=== PATIENT | male | born 1985 | race Caucasian/White ===

== ENCOUNTER 2019-12-05 23:53 | Observation (INO) ==
[2019-12-06] MEDS ORDERED: ONDANSETRON INJ 2 MG/ML 2 ML VIAL ONE (00:07)
[2019-12-06] MEDS ORDERED: LORazepam 2 MG/ML VIAL IV ONE (00:09)
[2019-12-06] MEDS ORDERED: SODIUM CHLORIDE 0.9% 1000ML 1,000 ML IV SCH ×2 (00:15→05:15)
[2019-12-06 00:25] LABS: Basophils # (auto) 0.01 K/uL (0-0.2); Basophils % (auto) 0.2 %; Eosinophils # (auto) 0.04 K/uL (0-0.5); Eosinophils % (auto) 0.8 %; Hematocrit (blood only) 42.6 % (42-52); Hemoglobin 14.5 g/dL (14.0-18.0); Immature Granulocytes # (auto) 0.01 K/uL (0.00-0.02); Immature Granulocytes % (auto) 0.2 %; Lymphocytes # (auto) 1.32 K/uL (1.2-3.4); Lymphocytes % (auto) 27.6 %; Mean Corpuscular Hemoglobin 30.3 pg (25-34); Mean Corpuscular Volume 88.9 fL (80-100); Mean Platelet Volume 9.9 fL (7.4-10.4); Monocytes # (auto) 0.33 K/uL (0.11-0.59); Monocytes % (auto) 6.9 %; Neutrophils # (auto) 3.07 K/uL (1.4-6.5); Neutrophils % (auto) 64.3 %; Platelet Count 188 K/uL (130-400); RDW Coefficient of Variation 13.3 % (11.5-14.5); RDW Standard Deviation 43.4 fL (36.4-46.3); Red Blood Count 4.79 M/uL (4.7-6.1); White Blood Count 4.78 K/uL (4.8-10.8)
[2019-12-06 00:42] LABS: Acetaminophen < 2 ug/ml (10-30); Salicylate < 1.7 mg/dl (2.8-20)
[2019-12-06 00:50] LABS: Alanine Aminotransferase 78 U/L (12-78); Albumin Globulin Ratio 1.1 (0.9-2); Albumin Level 3.8 gm/dl (3.4-5.0); Alkaline Phosphatase 52 U/L (45-117); Aspartate Aminotransferase 62 U/L (15-37); BUN Creatinine Ratio 7.1 (10-20); Bilirubin,Total 0.5 mg/dl (0.2-1); Blood Urea Nitrogen 9 mg/dl (7-18); Calcium 8.1 mg/dl (8.5-10.1); Carbon Dioxide 27 mmol/L (21-32); Chloride 107 mmol/L (98-107); Creatine Kinase 226 U/L (39-308); Creatinine Clr Calc Pharmacy 79.5 ml/min; Est GFR (African American) 84.5; Est GFR (Non-African American) 72.9; Globulin 3.4 gm/dl (2.5-4.0); Glucose 328 mg/dl (70-99); Magnesium 2.3 mg/dl (1.8-2.4); Potassium 3.9 mmol/L (3.5-5.1); Sodium 139 mmol/L (136-145); Total Protein 7.2 gm/dl (6.4-8.2); Troponin I < 0.015 ng/ml (0-0.045)
--- NOTE | 2019-12-06 01:01 | Emergency Department Note ---
Impression & Plan Cardiac arrest, Acute drug overdose, Acute hyperglycemia ED Provider Note NAME: CAITY ENRIQUE AGE: 34 SEX: M ARRIVES VIA: Ambulance INFORMANT: Patient, EMS ED PROVIDER(S): Isatu Velasquez DO CHIEF COMPLAINT: Cardiac arrest PLAN: Disposition: Admission to ICU by the [facility]ist MEDICAL DECISION MAKING: This is a 34-year-old male patient who presents to the emergency department after being found in cardiac arrest at home from a drug overdose. EMS and police found the patient at his apartment in asystole from a presumed drug overdose. After some basic life support resuscitation, the patient regained a pulse and began breathing again on his own. He was given a dose of Narcan which seemed to improve his situation. In route to the hospital, the patient had another episode of asystole and was again resuscitated. Once here at the hospital, the patient does admit to snorting an unknown drug which may have led to his situation. The patient required no further resuscitation here in the emergency department. He was found to be significantly hyperglycemic and was treated with IV fluids. He was somewhat hypothermic and was warmed with blankets. He was observed on the manager cardiac cath and pulse oximeter. The patient encouraged us to contact his mother who came to the bedside. The patient was noted to be hyperglycemic on laboratory testing. This is most likely a stress response. This will be followed closely as an inpatient. He has no history of previous episodes of hypoglycemia according to the mother. The case was discussed with the [facility] Hospitalist and they will evaluate the patient for further management. Triage Nursing notes reviewed and agree them. Additional history obtained from police, EMS and the patient's mother Vital Signs: reviewed and remarkable for hypothermia Differential diagnosis: Drug overdose, cardiac arrest, alcohol intoxication, trauma, ER treatment provided: IV normal saline hydration, IV Zofran, IV Ativan Diagnostics interpreted by me: ECG: Normal sinus rhythm at 91. There was no ST segment elevation or signs of ischemia. There was no ectopy Cardiac Monitoring: None Laboratory studies: See below Imaging studies: as per stat rad CT head : No acute intracranial process Chest x-ray: As per my interpretation-there is no evidence of pulmonary infiltrate or aspiration HPI: 34/M arrives for evaluation of cardiac arrest secondary to drug overdose. This is a 34-year-old male patient with a history of drug abuse who suffered a cardiac arrest tonight in his apartment. Most of the history was obtained from EMS and police initially. The patient was found by police and EMS in an unresponsive status with no pulse and not breathing. Someone called 911 from the apartment but he was found on the ground by himself when they arrived. They performed CPR with both compressions and ventilations for a period of time as the patient was noted to be asystolic on the manager cardiac cath. The patient slowly regained a pulse and began to breathe. They did administer 0.4mg IV Narcan which did seem to improve his level of consciousness for a short period of time. In route to the hospital, according to EMS, the patient became asystolic again and both chest compressions and ventilations were performed again for a period of time. The patient then slowly regained a pulse and began to breathe again. ROS: Unobtainable from patient as he is not fully awake and alert PAST MEDICAL HISTORY:Hearing loss secondary to trauma during service PAST SURGICAL HISTORY:See Below FAMILY HISTORY:See Below SOCIAL HISTORY:Recently deemed disabled; admits to drug use HOME MEDICATIONS:See Below ALLERGIES:See Below VITALS:See Below PHYSICAL EXAMINATION: HEENT: Head - normocephalic and atraumatic Pupils are equal, round, and reactive to light. Extraocular eye muscles are intact, and sclera are anicteric. Nose - moist nasal mucosa without discharge. Mouth - moist buccal mucosa. Oropharynx is nonerythematous and there is no tonsillar exudate or edema noted. Neck: Supple; no JVD, nuchal rigidity, cervical lymphadenopathy. Heart: Regular rate and rhythm. There is a normal S1 and S2 with no murmurs, cl icks, or gallops appreciated. Lungs: Clear to auscultation bilaterally with no wheezes, rales, or rhonchi. Abdomen: Soft, completely nontender, nondistended, with good bowel sounds. There are no palpable pulsatile masses or hepatosplenomegaly. There is no guarding, rigidity, or rebound noted. Extremities: No evidence of cyanosis, clubbing, or edema. There are easily palpable peripheral pulses. There were some track thomas noted in the left antecubital fossa. Skin: warm and dry with good turgor and no rashes. Neuro: The patient is slow to answer questions. After some time, he will answer them appropriately. He will follow instructions. He is moving all 4 extremities. ED COURSE: Times/Reassessments: 2355: The patient was evaluated in room B1 and report was received from EMS at the bedside. An order was placed for continuous cardiac monitoring. The patient was in a sinus tachycardia at a rate of 110. He was given 4 mg of IV Zofran for his retching. A twelve-lead EKG was obtained and described as above. The patient continued to retch and threw himself about the bed. He was given 0.5 mg of IV Ativan. 0040: Called the patient's mother on the phone at the direction of the patient and made her aware of the situation. She will come to the hospital 0055: The patient is resting more comfortably at this time is no longer dry heaving. 0115: The patient is hemodynamically stable. He is easily arousable. They were able to get a temperature on him and he is slightly hypothermic. They will cover him with warm blankets 0120: The patient's mother arrived at the bedside. I discussed the case with her I discussed the case with the [facility] Hospitalist and they will evaluate for further management. Isatu Velasquez, DO Past Med/Surg History Social History Preferred Language: Nigerian Feels Safe at Home: Yes Smoking Status: Current every day smoker packs per day: 1 ; Second Hand Exposure: Yes ; Hx Alcohol Use: Yes Hx Substance Use: No Allergies Allergies Allergy/AdvReac Type Severity Reaction Status Date / Time No Known Allergies Allergy Unverified 12/06/19 00:35 Home Meds Home Medications Medication Instructions Recorded Confirmed cholecalciferol (vitamin D3) 0 mcg PO DAILY 12/06/19 12/06/19 Results & Data (ED) Vital Signs Vital Signs - 24 hr 12/05/19 23:57 12/06/19 00:00 12/06/19 00:10 Temperature 35.6 C L Temperature Source Skin Pulse Rate 89 94 H 91 H Pulse Rate [Apical] 94 H Pulse Rate from SpO2 Sensor 91 H Respiratory Rate 16 18 14 Respiratory Effort / Characteristics Respiratory Depth Blood Pressure 106/68 110/63 99/57 L Blood Pressure [Left Arm] 99/57 L Blood Pressure Mean 80 82 78 Blood Pressure Mean [Left Arm] 71 Pulse Oximetry 92 96 97 Oxygen Delivery Method Room Air Nasal Cannula Oxygen Flow Rate 3 Sepsis Recent Fever Within 48 Hours No Sepsis Action Taken by Nursing No Action Required 12/06/19 00:20 12/06/19 00:30 12/06/19 00:45 Temperature Temperature Source Pulse Rate 93 H 99 H Pulse Rate [Apical] 97 H Pulse Rate from SpO2 Sensor Respiratory Rate 16 15 Respiratory Effort / Characteristics Non-Labored Respiratory Depth Normal Blood Pressure 99/80 L 108/62 Blood Pressure [Left Arm] 108/62 Blood Pressure Mean 84 92 Blood Pressure Mean [Left Arm] 77 Pulse Oximetry 94 93 Oxygen Delivery Method Nasal Cannula Nasal Cannula Room Air Oxygen Flow Rate 3 3 Sepsis Recent Fever Within 48 Hours Sepsis Action Taken by Nursing 12/06/19 00:49 12/06/19 00:50 12/06/19 00:52 Temperature Temperature Source Pulse Rate 92 H 99 H Pulse Rate [Apical] 94 H Pulse Rate from SpO2 Sensor 104 H 98 H Respiratory Rate 21 18 16 Respiratory Effort / Characteristics Respiratory Depth Blood Pressure 103/67 Blood Pressure [Left Arm] 103/67 Blood Pressure Mean 78 Blood Pressure Mean [Left Arm] 79 Pulse Oximetry 95 98 94 Oxygen Delivery Method Room Air Oxygen Flow Rate Sepsis Recent Fever Within 48 Hours Sepsis Action Taken by Nursing 12/06/19 00:53 12/06/19 00:56 12/06/19 01:00 Temperature Temperature Source Pulse Rate 90 Pulse Rate [Apical] 91 H Pulse Rate from SpO2 Sensor 91 H Respiratory Rate 7 L Respiratory Effort / Characteristics Spontaneous Respiratory Depth Blood Pressure 108/71 Blood Pressure [Left Arm] 108/71 Blood Pressure Mean 83 Blood Pressure Mean [Left Arm] 83 Pulse Oximetry 83 L 95 100 Oxygen Delivery Method Room Air Nasal Cannula Nasal Cannula Oxygen Flow Rate 3 3 Sepsis Recent Fever Within 48 Hours Sepsis Action Taken by Nursing 12/06/19 01:01 12/06/19 01:15 12/06/19 01:16 Temperature Temperature Source Pulse Rate 91 H 93 H 94 H Pulse Rate [Apical] Pulse Rate from SpO2 Sensor 91 H Respiratory Rate 12 19 14 Respiratory Effort / Characteristics Respiratory Depth Blood Pressure 108/70 Blood Pressure [Left Arm] Blood Pressure Mean 77 Blood Pressure Mean [Left Arm] Pulse Oximetry 100 100 100 Oxygen Delivery Method Nasal Cannula Nasal Cannula Oxygen Flow Rate 3 3 Sepsis Recent Fever Within 48 Hours Sepsis Action Taken by Nursing 12/06/19 01:30 12/06/19 01:31 12/06/19 01:45 Temperature Temperature Source Pulse Rate 92 H 93 H 96 H Pulse Rate [Apical] Pulse Rate from SpO2 Sensor Respiratory Rate 13 14 14 Respiratory Effort / Characteristics Respiratory Depth Blood Pressure 109/71 102/76 Blood Pressure [Left Arm] Blood Pressure Mean 86 88 Blood Pressure Mean [Left Arm] Pulse Oximetry 100 100 100 Oxygen Delivery Method Nasal Cannula Nasal Cannula Nasal Cannula Oxygen Flow Rate 3 3 3 Sepsis Recent Fever Within 48 Hours Sepsis Action Taken by Nursing 12/06/19 01:46 12/06/19 02:00 12/06/19 02:15 Temperature Temperature Source Pulse Rate 94 H 91 H 95 H Pulse Rate [Apical] Pulse Rate from SpO2 Sensor 93 H Respiratory Rate 15 14 14 Respiratory Effort / Characteristics Respiratory Depth Blood Pressure 97/74 L 110/75 Blood Pressure [Left Arm] Blood Pressure Mean 82 86 Blood Pressure Mean [Left Arm] Pulse Oximetry 100 100 100 Oxygen Delivery Method Nasal Cannula Nasal Cannula Oxygen Flow Rate 3 3 Sepsis Recent Fever Within 48 Hours Sepsis Action Taken by Nursing 12/06/19 02:30 12/06/19 02:45 12/06/19 02:46 Temperature Temperature Source Pulse Rate 94 H 93 H 93 H Pulse Rate [Apical] Pulse Rate from SpO2 Sensor Respiratory Rate 12 14 14 Respiratory Effort / Characteristics Respiratory Depth Blood Pressure 111/73 109/70 Blood Pressure [Left Arm] Blood Pressure Mean 82 82 Blood Pressure Mean [Left Arm] Pulse Oximetry 100 100 99 Oxygen Delivery Method Nasal Cannula Oxygen Flow Rate Sepsis Recent Fever Within 48 Hours Sepsis Action Taken by Nursing 12/06/19 03:00 12/06/19 03:01 12/06/19 03:15 Temperature Temperature Source Pulse Rate 94 H 94 H 91 H Pulse Rate [Apical] Pulse Rate from SpO2 Sensor 94 H 88 Respiratory Rate 13 12 21 Respiratory Effort / Characteristics Respiratory Depth Blood Pressure 104/72 Blood Pressure [Left Arm] Blood Pressure Mean 81 Blood Pressure Mean [Left Arm] Pulse Oximetry 100 100 94 Oxygen Delivery Method Nasal Cannula Oxygen Flow Rate 2 Sepsis Recent Fever Within 48 Hours Sepsis Action Taken by Nursing 12/06/19 03:16 12/06/19 03:45 Temperature Temperature Source Pulse Rate 101 H 89 Pulse Rate [Apical] Pulse Rate from SpO2 Sensor 91 H 86 Respiratory Rate 18 20 Respiratory Effort / Characteristics Respiratory Depth Blood Pressure 108/70 103/62 Blood Pressure [Left Arm] Blood Pressure Mean 90 78 Blood Pressure Mean [Left Arm] Pulse Oximetry 74 L 96 Oxygen Delivery Method Nasal Cannula Oxygen Flow Rate 3 Sepsis Recent Fever Within 48 Hours Sepsis Action Taken by Nursing Laboratory Data Result diagrams: 12/06/19 00:00 12/06/19 00:00 Lab Results 12/06/19 12/06/19 12/06/19 Range/Units 00:00 00:00 00:00 WBC 4.78 L (4.8-10.8) K/uL RBC 4.79 (4.7-6.1) M/uL Hgb 14.5 (14.0-18.0) g/dL Hct 42.6 (42-52) % MCV 88.9 (80-100) fL MCH 30.3 (25-34) pg MCHC 34.0 (32-36) g/dL RDW Std Deviation 43.4 (36.4-46.3) fL RDW Coeff of [place] 13.3 (11.5-14.5) % Plt Count 188 (130-400) K/uL MPV 9.9 (7.4-10.4) fL Immature Gran % (Auto) 0.2 % Neut % (Auto) 64.3 % Lymph % (Auto) 27.6 % [place] % (Auto) 6.9 % Eos % (Auto) 0.8 % Baso % (Auto) 0.2 % Neut # (Auto) 3.07 (1.4-6.5) K/uL Lymph # (Auto) 1.32 (1.2-3.4) K/uL [place] # (Auto) 0.33 (0.11-0.59) K/uL Eos # (Auto) 0.04 (0-0.5) K/uL Baso # (Auto) 0.01 (0-0.2) K/uL Immature Gran # (Auto) 0.01 (0.00-0.02) K/uL Sodium 139 (136-145) mmol/L Potassium 3.9 (3.5-5.1) mmol/L Chloride 107 (98-107) mmol/L Carbon Dioxide 27 (21-32) mmol/L Anion Gap 5.0 (3-11) BUN 9 (7-18) mg/dl Creatinine 1.29 (0.6-1.4) mg/dl Est Cr Clr Drug Dosing 79.5 ml/min Est GFR ( Amer) 84.5 Est GFR (Non-Af Amer) 72.9 BUN/Creatinine Ratio 7.1 L (10-20) Glucose 328 H* (70-99) mg/dl POC Glucose (70-99) mg/dl Calcium 8.1 L (8.5-10.1) mg/dl Magnesium 2.3 (1.8-2.4) mg/dl Total Bilirubin 0.5 (0.2-1) mg/dl AST 62 H (15-37) U/L ALT 78 (12-78) U/L Alkaline Phosphatase 52 (45-117) U/L Total Creatine Kinase 226 (39-308) U/L Troponin I < 0.015 (0-0.045) ng/ml Total Protein 7.2 (6.4-8.2) gm/dl Albumin 3.8 (3.4-5.0) gm/dl Globulin 3.4 (2.5-4.0) gm/dl Albumin/Globulin Ratio 1.1 (0.9-2) Beta-Hydroxybutyric Acd 1.65 (0.2-2.81) mg/dl Urine Color Urine Appearance (Clear) Urine pH (4.5-7.5) Ur Specific [place] (1.000-1.030) Urine Protein (Negative) Urine Glucose (UA) (Negative) Urine Ketones (Negative) Urine Blood (Negative) Urine Nitrite (Negative) Urine Bilirubin (Negative) Urine Urobilinogen (Negative) Ur Leukocyte Esterase (Negative) Urine WBC (Auto) (0-5) /hpf Urine RBC (Auto) (0-4) /hpf U Hyaline Cast (Auto) (0-5) /lpf U Epithel Cells (Auto) (0-5) /lpf Urine Bacteria (Auto) (Negative) Salicylates < 1.7 L (2.8-20) mg/dl Urine Opiates Screen (Neg) Ur Methadone, Qual (Neg) Acetaminophen < 2 L (10-30) ug/ml Urine Barbiturates (Neg) Ur Phencyclidine (PCP) (Neg) U Amphetamin/Meth Scrn (Neg) MDMA (Ecstasy) Screen (Neg) U Benzodiazepines Scrn (Neg) Ur Cocaine Metabolite (Neg) U Marijuana (THC) Screen (Neg) Ethyl Alcohol mg/dL (0-3) mg/dl 12/06/19 12/06/19 12/06/19 Range/Units 00:00 03:07 03:15 WBC (4.8-10.8) K/uL RBC (4.7-6.1) M/uL Hgb (14.0-18.0) g/dL Hct (42-52) % MCV (80-100) fL MCH (25-34) pg MCHC (32-36) g/dL RDW Std Deviation (36.4-46.3) fL RDW Coeff of [place] (11.5-14.5) % Plt Count (130-400) K/uL MPV (7.4-10.4) fL Immature Gran % (Auto) % Neut % (Auto) % Lymph % (Auto) % [place] % (Auto) % Eos % (Auto) % Baso % (Auto) % Neut # (Auto) (1.4-6.5) K/uL Lymph # (Auto) (1.2-3.4) K/uL [place] # (Auto) (0.11-0.59) K/uL Eos # (Auto) (0-0.5) K/uL Baso # (Auto) (0-0.2) K/uL Immature Gran # (Auto) (0.00-0.02) K/uL Sodium (136-145) mmol/L Potassium (3.5-5.1) mmol/L Chloride (98-107) mmol/L Carbon Dioxide (21-32) mmol/L Anion Gap (3-11) BUN (7-18) mg/dl Creatinine (0.6-1.4) mg/dl Est Cr Clr Drug Dosing ml/min Est GFR ( Amer) Est GFR (Non-Af Amer) BUN/Creatinine Ratio (10-20) Glucose (70-99) mg/dl POC Glucose 91 (70-99) mg/dl Calcium (8.5-10.1) mg/dl Magnesium (1.8-2.4) mg/dl Total Bilirubin (0.2-1) mg/dl AST (15-37) U/L ALT (12-78) U/L Alkaline Phosphatase (45-117) U/L Total Creatine Kinase (39-308) U/L Troponin I (0-0.045) ng/ml Total Protein (6.4-8.2) gm/dl Albumin (3.4-5.0) gm/dl Globulin (2.5-4.0) gm/dl Albumin/Globulin Ratio (0.9-2) Beta-Hydroxybutyric Acd (0.2-2.81) mg/dl Urine Color Urine Appearance (Clear) Urine pH (4.5-7.5) Ur Specific [place] (1.000-1.030) Urine Protein (Negative) Urine Glucose (UA) (Negative) Urine Ketones (Negative) Urine Blood (Negative) Urine Nitrite (Negative) Urine Bilirubin (Negative) Urine Urobilinogen (Negative) Ur Leukocyte Esterase (Negative) Urine WBC (Auto) (0-5) /hpf Urine RBC (Auto) (0-4) /hpf U Hyaline Cast (Auto) (0-5) /lpf U Epithel Cells (Auto) (0-5) /lpf Urine Bacteria (Auto) (Negative) Salicylates (2.8-20) mg/dl Urine Opiates Screen Neg (Neg) Ur Methadone, Qual Neg (Neg) Acetaminophen (10-30) ug/ml Urine Barbiturates Neg (Neg) Ur Phencyclidine (PCP) Neg (Neg) U Amphetamin/Meth Scrn Pos H (Neg) MDMA (Ecstasy) Screen Pos H (Neg) U Benzodiazepines Scrn Neg (Neg) Ur Cocaine Metabolite Neg (Neg) U Marijuana (THC) Screen Neg (Neg) Ethyl Alcohol mg/dL < 3.0 (0-3) mg/dl 12/06/19 Range/Units 03:15 WBC (4.8-10.8) K/uL RBC (4.7-6.1) M/uL Hgb (14.0-18.0) g/dL Hct (42-52) % MCV (80-100) fL MCH (25-34) pg MCHC (32-36) g/dL RDW Std Deviation (36.4-46.3) fL RDW Coeff of [place] (11.5-14.5) % Plt Count (130-400) K/uL MPV (7.4-10.4) fL Immature Gran % (Auto) % Neut % (Auto) % Lymph % (Auto) % [place] % (Auto) % Eos % (Auto) % Baso % (Auto) % Neut # (Auto) (1.4-6.5) K/uL Lymph # (Auto) (1.2-3.4) K/uL [place] # (Auto) (0.11-0.59) K/uL Eos # (Auto) (0-0.5) K/uL Baso # (Auto) (0-0.2) K/uL Immature Gran # (Auto) (0.00-0.02) K/uL Sodium (136-145) mmol/L Potassium (3.5-5.1) mmol/L Chloride (98-107) mmol/L Carbon Dioxide (21-32) mmol/L Anion Gap (3-11) BUN (7-18) mg/dl Creatinine (0.6-1.4) mg/dl Est Cr Clr Drug Dosing ml/min Est GFR ( Amer) Est GFR (Non-Af Amer) BUN/Creatinine Ratio (10-20) Glucose (70-99) mg/dl POC Glucose (70-99) mg/dl Calcium (8.5-10.1) mg/dl Magnesium (1.8-2.4) mg/dl Total Bilirubin (0.2-1) mg/dl AST (15-37) U/L ALT (12-78) U/L Alkaline Phosphatase (45-117) U/L Total Creatine Kinase (39-308) U/L Troponin I (0-0.045) ng/ml Total Protein (6.4-8.2) gm/dl Albumin (3.4-5.0) gm/dl Globulin (2.5-4.0) gm/dl Albumin/Globulin Ratio (0.9-2) Beta-Hydroxybutyric Acd (0.2-2.81) mg/dl Urine Color Yellow Urine Appearance Clear (Clear) Urine pH 5.5 (4.5-7.5) Ur Specific [place] 1.021 (1.000-1.030) Urine Protein 2+ H (Negative) Urine Glucose (UA) 3+ H (Negative) Urine Ketones Negative (Negative) Urine Blood Negative (Negative) Urine Nitrite Negative (Negative) Urine Bilirubin Negative (Negative) Urine Urobilinogen Negative (Negative) Ur Leukocyte Esterase Negative (Negative) Urine WBC (Auto) 10-30 H (0-5) /hpf Urine RBC (Auto) 0-4 (0-4) /hpf U Hyaline Cast (Auto) 0 (0-5) /lpf U Epithel Cells (Auto) 0-5 (0-5) /lpf Urine Bacteria (Auto) Negative (Negative) Salicylates (2.8-20) mg/dl Urine Opiates Screen (Neg) Ur Methadone, Qual (Neg) Acetaminophen (10-30) ug/ml Urine Barbiturates (Neg) Ur Phencyclidine (PCP) (Neg) U Amphetamin/Meth Scrn (Neg) MDMA (Ecstasy) Screen (Neg) U Benzodiazepines Scrn (Neg) Ur Cocaine Metabolite (Neg) U Marijuana (THC) Screen (Neg) Ethyl Alcohol mg/dL (0-3) mg/dl Administered Medications Sodium Chloride (Nss) 500 mls @ 125 mls/hr IV .Q4H PADMINI Stop: 01/05/20 01:44 Last Admin: 12/06/19 01:50 Dose: 125 mls/hr Documented by: [id number] Discontinued Medications Sodium Chloride (Nss 1000ml) 1,000 mls @ 999 mls/hr IV .Q1H1M PADMINI Stop: 12/06/19 01:15 Last Infusion: 12/06/19 01:24 Dose: 0 mls/hr Documented by: [id number] Admin: 12/06/19 00:24 Dose: 999 mls/hr Documented by: [id number] Lorazepam (Ativan) Confirm Administered Dose 2 mg IV .STK-MED ONE Stop: 12/06/19 00:10 Last Admin: 12/06/19 00:10 Dose: 0.5 mg Documented by: [id number] Naloxone HCl (Narcan) Confirm Administered Dose 0.4 mg .ROUTE .STK-MED ONE Stop: 12/06/19 03:11 Last Admin: 12/06/19 03:14 Dose: 0.4 mg Documented by: [id number] Naloxone HCl (Narcan) 0.4 mg IV NOW STA Stop: 12/06/19 03:33 Last Admin: 12/06/19 03:48 Dose: 0.4 mg Documented by: [id number] Ondansetron HCl (Zofran) Confirm Administered Dose 4 mg .ROUTE .STK-MED ONE Stop: 12/06/19 00:08 Last Admin: 12/06/19 00:10 Dose: 4 mg Documented by: [id number] Discharge Plan Visit Data Chief Complaint: Overdose (Accidental) Stated Complaint: overdose ED Provider: Isatu Velasquez Discharge Problem: Cardiac arrest, Acute drug overdose, Acute hyperglycemia Discharge Instructions Interventions: ED Discharge Assessment Last Done: 12/06/19 03:56 Forms Stand Alone Forms: [facility] Prescriptions Prescriptions: No Action cholecalciferol (vitamin D3) 25 mcg (1,000 unit) Tablet 0 mcg PO DAILY RF: 0 Referrals Referrals: PCP,NO [Primary Care Provider] - Discharge Problem: Acute drug overdose Qualifiers: Encounter type: initial encounter Injury intent: undetermined intent Qualified Code(s): T50.904A - Poisoning by unspecified drugs, medicaments and biological substances, undetermined, initial encounter
[2019-12-06 01:13] LABS: Beta-Hydroxybutyrate 1.65 mg/dl (0.2-2.81)
[2019-12-06] MEDS ORDERED: SODIUM CHLORIDE 0.9% 500 ML IV SCH (01:45)
--- NOTE | 2019-12-06 02:03 | History & Physical Report ---
Date of Service December 06, 2019 Assessment & Plan (1) Acute drug overdose: 34 yo M brought to ED by ambulance after drug overdose and cardiac arrest with PEA requiring narcan, Epi and compressions to achieve ROSC. 1. Drug OD - UDS pending straight cath for urine sample. Per history from mom, he would snort heroin and abuse his adderall prescription. - Sinus tachycardia with HR in high 90's, BP steady in 110/75s, Respiratory rate ranges from 7-14 with O2 sat 100 on 3LNC - no intubation required in field as pt began breathing spontaneously on his own after Narcan - CT head negative for acute intracranial changes - IVNS hydration - trop <0.015, trending. - CBC and BMP wnl. - TTE to r/o infective endocarditis with hx drug abuse - PRN Narcan for respiratory failure 2. S/P Cardiac Arrest - likely respiratory failure from drug OD leading to cardiac arrest - will need UDS to identify if pt had mixed heroin with adderall or other prescriptions 3. Hyperglycemia - initial BSG 328, repeat 91. - likely secondary to physiologic stress from CPR DVT ppx: SCDs FEN/GI: NPO, IVNS Dispo: ICU Code Status: Full Code (2) Cardiac arrest: (3) Acute hyperglycemia: (4) PTSD (post-traumatic stress disorder): History of Present Illness Patient is a 34-year-old male ex- who was brought to the emergency department today via ambulance for heroin overdose resulting in cardiac arrest status post PEA and CPR in the field. Patient was revived with Narcan in the field and began breathing on his own did not need intubation. HPI limited by patient's lack of consciousness. Per report from mother who was bedside patient has had a long history of dealing with drug abuse that started when he was in the . Dates that he is very open with her about his Adderall abuse and frequently snorting heroin. SHe states she is concerned that he might of done this as a drug binge after breaking up with his girlfriend a week ago. The time when she saw him 8 days ago she says that he seemed his normal self and did not appear to be having any issues at that time. Primary Care Provider: NO PCP Allergies Allergy/AdvReac Type Severity Reaction Status Date / Time No Known Allergies Allergy Unverified 12/06/19 00:35 Home Medications Home Medications Medication Instructions Recorded Confirmed Type cholecalciferol (vitamin D3) 0 mcg PO DAILY 12/06/19 12/06/19 History Past Med/Surg History Medical History (Updated 12/06/19 @ 05:21 by LYNDON Hernandez) ADD (attention deficit disorder) (Chronic) Drug abuse, opioid type No pertinent past medical history PTSD (post-traumatic stress disorder) Surgical History History of surgery Left forearm - 2016 Social History Preferred Language: Japanese Communication Ability: Effective Swedger Required: No Beliefs That Will Affect Care: None Current Living Situation: Alone Feels Safe at Home: Yes Smoking Status: Current every day smoker packs per day: 1 ; Cigarettes Per Day: 20 ; Second Hand Exposure: Yes ; Hx Alcohol Use: Yes Alcohol type: beer Hx Substance Use: Yes substance use type: marijuana Substance Use Type Other:: Took a pill last night from someone but unsure what it was. Last Used Substance: Hours (ago) Review of Systems Review of Systems: Unobtainable due to cognitive status Physical Exam Constitutional: WD/WN, vitals as above + altered mental status Respiratory: normal respiratory effort, lungs clear to auscultation Auscultation: no crackles, no wheezes and no pleural rub Cardiovascular: RRR, no murmur, no edema Heart Sounds: no gallop, no murmur and no cardiac rub Vessels: no JVD Extremities: normal capillary refill; no calf tenderness, no pedal edema and no edema Gastrointestinal (Abdomen): Inspection/Auscultation: abdomen normal to inspection; abdomen not distended Percussion/Palpation: abdomen soft; abdomen nontender, no guarding and abdomen not rigid Skin: injection thomas at L antecubital fossa Results & Data Results & Data ([facility]) Vital Signs (Past 12 Hours) Vital Signs Temp Pulse Pulse Resp BP BP Pulse Ox 12/06/19 01:46 94 H 15 100 12/06/19 01:45 96 H 9 L 102/76 100 12/06/19 01:31 93 H 9 L 100 12/06/19 01:30 92 H 8 L 109/71 100 12/06/19 01:16 94 H 14 100 12/06/19 01:15 93 H 19 108/70 100 12/06/19 01:01 91 H 12 100 12/06/19 01:00 90 91 H 7 L 108/71 108/71 100 12/06/19 00:56 95 12/06/19 00:53 83 L 12/06/19 00:52 94 H 16 103/67 94 12/06/19 00:50 99 H 18 103/67 98 12/06/19 00:49 92 H 21 95 12/06/19 00:30 99 H 97 H 15 108/62 108/62 93 12/06/19 00:20 93 H 16 99/80 L 94 12/06/19 00:10 91 H 94 H 14 99/57 L 99/57 L 97 12/06/19 00:00 94 H 18 110/63 96 12/05/19 23:57 35.6 C L 89 16 106/68 92 Laboratory Results WBC 4.78 K/uL (4.8-10.8) L 12/06/19 00:00 RBC 4.79 M/uL (4.7-6.1) 12/06/19 00:00 Hgb 14.5 g/dL (14.0-18.0) 12/06/19 00:00 Hct 42.6 % (42-52) 12/06/19 00:00 MCV 88.9 fL (80-100) 12/06/19 00:00 MCH 30.3 pg (25-34) 12/06/19 00:00 MCHC 34.0 g/dL (32-36) 12/06/19 00:00 RDW Std Deviation 43.4 fL (36.4-46.3) 12/06/19 00:00 RDW Coeff of Nabor 13.3 % (11.5-14.5) 12/06/19 00:00 Plt Count 188 K/uL (130-400) 12/06/19 00:00 MPV 9.9 fL (7.4-10.4) 12/06/19 00:00 Immature Gran % (Auto) 0.2 % 12/06/19 00:00 Neut % (Auto) 64.3 % 12/06/19 00:00 Lymph % (Auto) 27.6 % 12/06/19 00:00 Beckham % (Auto) 6.9 % 12/06/19 00:00 Eos % (Auto) 0.8 % 12/06/19 00:00 Baso % (Auto) 0.2 % 12/06/19 00:00 Neut # (Auto) 3.07 K/uL (1.4-6.5) 12/06/19 00:00 Lymph # (Auto) 1.32 K/uL (1.2-3.4) 12/06/19 00:00 Beckham # (Auto) 0.33 K/uL (0.11-0.59) 12/06/19 00:00 Eos # (Auto) 0.04 K/uL (0-0.5) 12/06/19 00:00 Baso # (Auto) 0.01 K/uL (0-0.2) 12/06/19 00:00 Immature Gran # (Auto) 0.01 K/uL (0.00-0.02) 12/06/19 00:00 Sodium 139 mmol/L (136-145) 12/06/19 00:00 Potassium 3.9 mmol/L (3.5-5.1) 12/06/19 00:00 Chloride 107 mmol/L (98-107) 12/06/19 00:00 Carbon Dioxide 27 mmol/L (21-32) 12/06/19 00:00 Anion Gap 5.0 (3-11) 12/06/19 00:00 BUN 9 mg/dl (7-18) 12/06/19 00:00 Creatinine 1.29 mg/dl (0.6-1.4) 12/06/19 00:00 Est Cr Clr Drug Dosing 79.5 ml/min 12/06/19 00:00 Est GFR ( Amer) 84.5 12/06/19 00:00 Est GFR (Non-Af Amer) 72.9 12/06/19 00:00 BUN/Creatinine Ratio 7.1 (10-20) L 12/06/19 00:00 Glucose 328 mg/dl (70-99) H* 12/06/19 00:00 Calcium 8.1 mg/dl (8.5-10.1) L 12/06/19 00:00 Magnesium 2.3 mg/dl (1.8-2.4) 12/06/19 00:00 Total Bilirubin 0.5 mg/dl (0.2-1) 12/06/19 00:00 AST 62 U/L (15-37) H 12/06/19 00:00 ALT 78 U/L (12-78) 12/06/19 00:00 Alkaline Phosphatase 52 U/L (45-117) 12/06/19 00:00 Total Creatine Kinase 226 U/L (39-308) 12/06/19 00:00 Troponin I < 0.015 ng/ml (0-0.045) 12/06/19 00:00 Total Protein 7.2 gm/dl (6.4-8.2) 12/06/19 00:00 Albumin 3.8 gm/dl (3.4-5.0) 12/06/19 00:00 Globulin 3.4 gm/dl (2.5-4.0) 12/06/19 00:00 Albumin/Globulin Ratio 1.1 (0.9-2) 12/06/19 00:00 Beta-Hydroxybutyric Acd 1.65 mg/dl (0.2-2.81) 12/06/19 00:00 Salicylates < 1.7 mg/dl (2.8-20) L 12/06/19 00:00 Acetaminophen < 2 ug/ml (10-30) L 12/06/19 00:00 Ethyl Alcohol mg/dL < 3.0 mg/dl (0-3) 12/06/19 00:00 Critical Care Time Critical Care Time: Yes Total Critical Care Time: 45 Total critical care time was 45 minutes Supervising Physician Co-Signing Physician Notes Attending addendum: I have physically seen this patient, have supervised the medical residents activities, and agree with the H&P unless as otherwise noted. Assessment and Plan: Acute respiratory failure/cardiac arrest/secondary to drug overdose- Admit to intensive care unit Patient symptoms have significantly improved with second dose of Narcan 0.4 mg IV. Monitor for signs of congestive heart failure, aspiration pneumonia, arrhythmia. Patient was noted to have PEA while in the field, and did require CPR. NSS at 100 mils per hour., After receiving 1 L NSS in the ED. Return Checker team has been consulted Status post cardiac arrest- Order complete echocardiogram. Follow serial troponins. Consult cardiology Drug overdose- Presumptive drug use with heroin, and did reversed readily with second dose of IV Narcan. Urine drug screen has now been collected since patient has finally produce urine while in the ED. Mother reports that patient is a known abuser of Adderall. Hyperglycemia- Initial glucose of 328 has improved to 91 with hydration. Remainder of orders and notations as noted. Resident Activity Tracking Resident Involvement: Resident Care Provided Care Provided: Adult [facility] (1) Acute drug overdose Encounter type: initial encounter Injury intent: undetermined intent Qualified Code(s): T50.904A - Poisoning by unspecified drugs, medicaments and biological substances, undetermined, initial encounter
[2019-12-06] MEDS ORDERED: NALOXONE HCL 0.4 MG/1 ML VIAL/CARP ONE (03:10)
[2019-12-06] MEDS ORDERED: NALOXONE HCL 0.4 MG/1 ML VIAL/CARP IV STA (03:32)
[2019-12-06 03:33] LABS: Appearance Urine Clear (Clear); Bacteria Urine Automated Negative (Negative); Bilirubin Urine Negative (Negative); Blood Urine Negative (Negative); Cast Urine Automated 0 /lpf (0-5); Color Urine Yellow; Epithelial Cell Urine Auto 0-5 /lpf (0-5); Glucose Urine UA 3+ (Negative); Ketones Urine Negative (Negative); Leukocyte Esterase Urine Negative (Negative); Nitrite Urine Negative (Negative); Protein Urine 2+ (Negative); RBC Urine Automated 0-4 /hpf (0-4); Specific Gravity Urine 1.021 (1.000-1.030); Urobilinogen Urine Negative (Negative); pH Urine 5.5 (4.5-7.5)
[2019-12-06 03:55] LABS: Amphetamines+Metham, Urine Pos (Neg); Barbiturates, Urine Neg (Neg); Benzodiazepine, Urine Neg (Neg); Cocaine, Urine Neg (Neg); MDMA (Ecstacy), Urine Pos (Neg); Methadone, Urine Neg (Neg); Opiate, Urine Neg (Neg); Phencyclidine, Urine Neg (Neg)
[2019-12-06] MEDS ORDERED: ICU PROTOCOL FOR HYPERGLYCEMIA PRN (04:34)
[2019-12-06] MEDS ORDERED: NALOXONE HCL 0.4 MG/1 ML VIAL/CARP IV PRN (04:34)
--- NOTE | 2019-12-06 04:59 | Critical Care Consultation ---
Date of Consultation December 06, 2019 Assessment & Plan (1) Acute drug overdose: Reason Critically Ill: 34-year-old male with overdose of unknown substance, resulting and cardiac arrest, resuscitated with CPR and Narcan. Has remained intermittently obtunded and requiring multiple doses of Narcan Neuro - Altered mental statuspatient presents as intermittently obtunded following drug overdose when she claims he snorted a white unknown substance given to him by a friend -Has been responsive to Narcan, will consider Narcan drip if continues to wax and wane with his mental status -CT of the head negative for acute process -UDS pending, EtOH negative, acetaminophen and salicylates negative -BUN and LFTs within normal limits -We will monitor in ICU for now until mental status stabilizes and patient can be downgraded -Patient is alert and oriented and appropriate after Narcan administration, significant anoxic injury unlikely Cardiac - Asystolic cardiac arrestlikely hypoxic related cardiac arrest following drug overdose -Converted with CPR and BLS measures on scene and once in route -No ST abnormalities on EKG, sinus rhythm -Troponin negative, Echo pending -Maximize electrolytes -Continue to monitor on telemetry Respiratory - Respiratory insufficiencypatient initially presented with hypoventilation and requiring supplemental oxygen, improved and now weaned to room air following Narcan administration -No history of respiratory disease -Chest x-ray with mild pulmonary congestion consistent with pulmonary edema likely following cardiac arrest with CPR -Continue to monitor on pulse ox GI - N.p.o. for now RENAL/LYTES - Creatinine stable, monitor routine electrolytes and replete as indicated - Strict I's and O's ENDO - No history diabetes or thyroid disease ICU hyperglycemic protocol HEME - H&H stable, monitor routine CBCs ID - No indication for infectious process at this time LINES/IV ACCESS - Peripheral IVs DVT PROPHYLAXIS - SCDs I have personally spent 35 minutes of critical care time in the direct management of this patient. This is a life/limb threatening event. This includes time spent evaluating patient, direct bedside care, chart review, placing orders, interpretation of diagnostic studies, discussion with consultants, patie nt, and family members, as well as other required patient management activities. This time is exclusive of all separately billable procedures, and teaching time and separate from and in addition to any other critical care service time. Thank you for allowing us to participate in the care of this patient. Please refer to my attending physician's documentation for any further recommendations. (2) PTSD (post-traumatic stress disorder): (3) Cardiac arrest: (4) ADD (attention deficit disorder): (5) Drug abuse, opioid type: Supervising Physician Co-Signing Physician Notes Agree with assessment plan as noted. Please see my written addendum for additional details History of Present Illness Attending Physician: Marty Ovalles MD History of Present Illness Patient is a 34-year-old male with PMH of PTSD, ADHD, drug abuse who presented to the emergency department last night is a drug overdose/cardiac arrest. The patient's friend had witnessed the patient overdose and called 911 and fled the scene. When EMS arrived they found the patient to be unresponsive, without pulse in PEA rhythm. Patient was resuscitated with BLS and administered Narcan, and ROSC was achieved in field. In route to the hospital the patient again experienced cardiac arrest and was again resuscitated. Patient had not been intubated as he continue to improve with Narcan administration. In the emergency department patient was again given Narcan and became arousable and was appropriately responding. Patient stated that he had snorted an unknown substance earlier prior to this event. However, when I went to examine the patient in the emergency department he was again unarousable and breathing shallow, in which another dose of Narcan 0.4 was administered. He was responsive to Narcan at that time, and awoke shortly after administration and was able to interact and answer questions appropriately. Patient again stated that he had earlier snorted an unknown substance, and he remembered previous conversations with the ER staff of which he reiterated that his heart had stopped and he had received CPR. As patient's condition is waxing and waning at this time, he is to be admitted to the ICU for close monitoring and potential need for Narcan drip. Currently patient is alert and oriented and hemodynamically stable. He denies headache, dizziness, nausea or vomiting, cough or sore throat, fevers, shortness of breath, chest pain, palpitations, abdominal pain, or diarrhea. He did state that he had been diagnosed with Lyme disease a month and a half ago but had completed his regimen of doxycycline of 21 days and had no recurrence of symptoms. Allergies Allergy/AdvReac Type Severity Reaction Status Date / Time No Known Allergies Allergy Unverified 12/06/19 00:35 Home Medications Home Medications Medication Instructions Recorded Confirmed Type cholecalciferol (vitamin D3) 0 mcg PO DAILY 12/06/19 12/06/19 History Patient History Medical History (Updated 12/06/19 @ 05:21 by LYNDON Hernandez) ADD (attention deficit disorder) (Chronic) Drug abuse, opioid type No pertinent past medical history PTSD (post-traumatic stress disorder) Surgical History History of surgery Left forearm - 2015 Social History Preferred Language: Slovenian Communication Ability: Effective Credit Manager Required: No Beliefs That Will Affect Care: None Current Living Situation: Alone Other Information That Helps Us Care for You: No Feels Safe at Home: Yes Safety Concerns: Feels Safe At This Time Smoking Status: Current every day smoker packs per day: 1 ; Cigarettes Per Day: 20 ; Second Hand Exposure: Yes ; Tobacco Cessation Education Requested by Patient: No Hx Alcohol Use: Yes Alcohol type: beer Hx Substance Use: Yes substance use type: marijuana Substance Use Type Other:: Took a pill last night from someone but unsure what it was. Last Used Substance: Hours (ago) Review of Systems Review of Systems: All systems reviewed & are unremarkable except as noted in HPI & below Physical Exam Constitutional: + disheveled and cooperative; + not well groomed Eyes: PERRL, EOM intact bilaterally and + pinpoint pupils ENMT: external ear and nose normal, oropharynx normal Neck: trachea midline, no thyromegaly Respiratory: normal respiratory effort, lungs clear to auscultation Cardiovascular: RRR, no murmur, no edema Heart Sounds: normal S1 and normal S2 Vessels: no JVD Extremities: normal capillary refill; no edema Gastrointestinal (Abdomen): normal bowel sounds, soft, nontender, no hepatosplenomegaly Musculoskeletal: no cyanosis or clubbing, extremities motor strength 5/5 Skin: no rashes, warm and dry Neurologic: PERRL, EOMI, accommodation nl, no face palsy, no dysarthria Psychiatric: Orientation: oriented x 3 Results & Data Results & Data ([facility]) Vital Signs (Past 12 Hours) Vital Signs Temp Pulse Pulse Resp BP BP Pulse Ox 12/06/19 03:45 89 20 103/62 96 12/06/19 03:16 101 H 18 108/70 74 L 12/06/19 03:15 91 H 21 94 12/06/19 03:01 94 H 12 100 12/06/19 03:00 94 H 13 104/72 100 12/06/19 02:46 93 H 14 99 12/06/19 02:45 93 H 14 109/70 100 12/06/19 02:30 94 H 12 111/73 100 12/06/19 02:15 95 H 14 110/75 100 12/06/19 02:00 91 H 14 97/74 L 100 12/06/19 01:46 94 H 15 100 12/06/19 01:45 96 H 14 102/76 100 12/06/19 01:31 93 H 14 100 12/06/19 01:30 92 H 13 109/71 100 12/06/19 01:16 94 H 14 100 12/06/19 01:15 93 H 19 108/70 100 12/06/19 01:01 91 H 12 100 12/06/19 01:00 90 91 H 7 L 108/71 108/71 100 12/06/19 00:56 95 12/06/19 00:53 83 L 12/06/19 00:52 94 H 16 103/67 94 12/06/19 00:50 99 H 18 103/67 98 12/06/19 00:49 92 H 21 95 12/06/19 00:30 99 H 97 H 15 108/62 108/62 93 12/06/19 00:20 93 H 16 99/80 L 94 12/06/19 00:10 91 H 94 H 14 99/57 L 99/57 L 97 12/06/19 00:00 94 H 18 110/63 96 12/05/19 23:57 35.6 C L 89 16 106/68 92 Coding Level of Care Code Critical Care 1st 30-74 mins Diagnoses Acute drug overdose T50.904A Encounter type: initial encounter Injury intent: undetermined intent PTSD (post-traumatic stress disorder) F43.10 Cardiac arrest I46.9 ADD (attention deficit disorder) F98.8 Drug abuse, opioid type F11.10 (1) Acute drug overdose Encounter type: initial encounter Injury intent: undetermined intent Qualified Code(s): T50.904A - Poisoning by unspecified drugs, medicaments and biological substances, undetermined, initial encounter
[2019-12-06 06:49] LABS: BUN Creatinine Ratio 10.6 (10-20); Blood Urea Nitrogen 9 mg/dl (7-18); Calcium 8.7 mg/dl (8.5-10.1); Carbon Dioxide 28 mmol/L (21-32); Chloride 111 mmol/L (98-107); Creatinine Clr Calc Pharmacy 112.9 ml/min; Est GFR (Non-African American) 118.2; Glucose 62 mg/dl (70-99); Sodium 143 mmol/L (136-145)
[2019-12-06 06:56] LABS: Creatine Kinase 195 U/L (39-308); Phosphorus 3.8 mg/dl (2.5-4.9); Troponin I < 0.015 ng/ml (0-0.045)
--- NOTE | 2019-12-06 08:01 | CT Scan Report ---
CT head/brain wo con CLINICAL HISTORY: 34 years-old Male with headache post cardiac arrest/PEA. Acute headache with cardi ac arrest TECHNIQUE: Multiple axial CT images of the head were obtained without contrast. A dose lowering tech nique was utilized adhering to the principles of ALARA. CT DOSE: 537.48 mGy.cm COMPARISON: Head CT of same day at 12:42 AM FINDINGS: No acute intracranial hemorrhage, midline shift, intracranial mass, hydrocephalus, territorial ischem ia or abnormal extra-axial collection. The calvarium is intact. The paranasal sinuses, mastoid air cells, and middle ear cavities are clear . IMPRESSION: No acute intracranial abnormality. ACT 112: Negative or not required by law. The above report was generated using voice recognition software. It may contain grammatical, syntax o r spelling errors. Electronically signed by: Fabrice Philip M.D. 12/06/2019 8:00 AM
--- NOTE | 2019-12-06 08:06 | Communication Note ---
Date of Service: December 06, 2019 Critical care attending addendum. Patient seen and examined. EMR reviewed. Discussed with critical care REBA. Reviewed his assessment and plan and agree with his documentation and the following addendum. Patient is a 34-year-old male who is [facility] due [facility]. He follows with his mental health provider at the [facility] about 2 or 3 times a month. He is not on any medications in the outpatient setting. He lives in [place] in an apartment. He denies any history of IV drug abuse. He states that he was given some sort of a medication which he administered intranasally last night. This was followed by cardiac arrest as noted in HPI and critical care note. Patient received several rounds of Narcan with his last dose being over awake alert and conversant without any complaints other than wanting to drink. The patient denies any suicidal or homicidal ideation or intentions. He states this was not a suicide attempt. He denies any prior history of IV drug abuse. Patient's laboratory studies were unrevealing. He appears to have suffered no significant sequelae from his asystolic arrests. There may have been respiratory in nature. We will advance his diet and get him out of bed to chair. If he continues to do well over the next several hours he will be eligible to transfer out of the ICU or potentially be discharged home per the primary admitting service. Coding Level of Care Code 99226 Prolonged Care (int'l) Time Spent (min) 35
--- NOTE | 2019-12-06 08:48 | CT Scan Report ---
CT head/brain wo con CLINICAL HISTORY: 34 years-old Male with altered ms. Acutely altered mental status with drug overdos e TECHNIQUE: Multiple axial CT images of the head were obtained without contrast. A dose lowering tech nique was utilized adhering to the principles of ALARA. CT DOSE: 537.48 mGy.cm COMPARISON: Head CT of same day at 4:20 AM, head CT 07/20/2015. FINDINGS: No acute intracranial hemorrhage, midline shift, intracranial mass, hydrocephalus, territorial ischem ia or abnormal extra-axial collection. The calvarium is intact. The paranasal sinuses, mastoid air cells, and middle ear cavities are clear . IMPRESSION: No acute intracranial abnormality. ACT 112: Negative or not required by law. The above report was generated using voice recognition software. It may contain grammatical, syntax o r spelling errors. Electronically signed by: Fabrice Philip M.D. 12/06/2019 8:47 AM
--- NOTE | 2019-12-06 08:51 | XRay Report ---
XR chest 1V portable HISTORY: 34 years-old Male cpr - eval for aspiration acute drug overdose with possible aspiration COMPARISON: Chest radiograph 07/20/2015 TECHNIQUE: Portable AP view of the chest FINDINGS: Cardiac silhouette is within normal limits. Asymmetric ill-defined left suprahilar and left upper jasen g opacities are new from comparison. No pneumothorax, pleural effusion or overt pulmonary edema. Bone s of the chest appear grossly intact. IMPRESSION: Ill-defined left suprahilar left upper lung asymmetric opacities may reflect airspace dis ease. Follow-up recommended. ACT 112: Negative or not required by law. The above report was generated using voice recognition software. It may contain grammatical, syntax o r spelling errors. Electronically signed by: Fabrice Philip M.D. 12/06/2019 8:49 AM
--- NOTE | 2019-12-06 10:35 | Discharge Summary ---
Date of Service December 06, 2019 Admission HPI Per Admitting Provider Patient is a 34-year-old male ex- who was brought to the emergency department today via ambulance for heroin overdose resulting in cardiac arrest status post PEA and CPR in the field. Patient was revived with Narcan in the field and began breathing on his own did not need intubation. HPI limited by patient's lack of consciousness. Per report from mother who was bedside patient has had a long history of dealing with drug abuse that started when he was in the . Dates that he is very open with her about his Adderall abuse and frequently snorting heroin. SHe states she is concerned that he might of done this as a drug binge after breaking up with his girlfriend a week ago. The time when she saw him 8 days ago she says that he seemed his normal self and did not appear to be having any issues at that time. Principal Diagnosis Drug Overdose Discharge Exam Constitutional WD/WN, vitals as above Eyes PERRL, conjunctivae normal, anicteric sclerae Respiratory normal respiratory effort, lungs clear to auscultation Cardiovascular Rate/Rhythm: regular rate and regular rhythm Heart Sounds: normal S1 and normal S2; no gallop, no murmur and no cardiac rub Gastrointestinal (Abdomen) normal bowel sounds, soft, nontender, no hepatosplenomegaly Musculoskeletal no cyanosis or clubbing, extremities motor strength 5/5 Neurologic patellar DTR's 2+ bilat, sensation intact Psychiatric A+Ox3, euthymic affect Discharge Data Allergies Allergy/AdvReac Type Severity Reaction Status Date / Time No Known Allergies Allergy Unverified 12/06/19 00:35 Consultations 12/06/19 01:44 ED Decision to Admit Stat 12/06/19 04:34 Consult Case Management - Discharge Planning Routine Consult Steak Sauce Maker Routine Ordered Studies 12/06/19 00:16 CT head/brain wo con Urgent 12/06/19 04:05 CT head/brain wo con Urgent Hospital Course (1) Acute drug overdose: 34 yo M brought to ED by ambulance after drug overdose and cardiac arrest with PEA requiring narcan, Epi and compressions to achieve ROSC. Cardiac arrest secondary to Drug Overdose in setting of opiate use disorder: - received 1 dose of Narcan in the field, with two more overnight with improvement. - no intubation required in field as pt began breathing spontaneously on his own after Narcan - CT head negative for acute intracranial changes - Kept in ICU and monitored overnight. Alert and awake in the morning. - TTE to r/o infective endocarditis with hx drug abuse - UDS positive for methamphetamines and MDMA - per history from mom, he would snort heroin and abuse his adderall prescription. - has outpatient drug rehab set up via [facility] Total Time Total Time Spent Total Time Spent (In Minutes): 30 Discharge Plan Discharge Items Patient Disposition: Home - Self-Care Reason For Visit: CARDIAC ARREST, DRUG OD Discharge Diagnosis: Drug Overdose Activity: Per Instructions section Non-emergency contact: Primary Care Provider Call non-emergency contact if: your symptoms worsen Follow-up/Referrals: PCP,NO [Primary Care Provider] - Diet: Regular Addtl Attending Provider Instructions: Please follow up with your providers at the [facility] for opiate use disorder. You are already in the process of being at a rehab facility and hope you will continue to stay safe in the meantime. Pending Studies at Discharge: No Stand-Alone Forms: My [facility] [employer], Smoking Cessation Medications and DC Order Prescriptions: Continued cholecalciferol (vitamin D3) 25 mcg (1,000 unit) Tablet 0 mcg PO DAILY RF: 0 Discharge Orders: Discharge Order (Routine); Ordered 12/06/19 Ordered By: Chloe Mohamud Admission Data Admit Date/Time: 12/06/19 03:22 Attending Provider: Chloe Mohamud Admit Provider: Tejal Lopez Primary Care Provider: PCP,ANJEL Other Providers: Elio Ortez Gregory Other Interventions: Discharge Summary Assessment (RN) Last Done: 12/06/19 10:35 DC Date/Time DO NOT enter until pt leaves facility: 12/06/19 10:47 Supervising Physician Co-Signing Physician Notes Resident Physician Supervision Note: I independently interviewed and examined the patient and verified the aragon history and physical, reviewed labs and image studies, discussed the case with the resident Dr. Murillo and agree with the findings and care plan. Resident Activity Tracking Resident Involvement: Resident Care Provided Care Provided: Adult Hospital Medicine
--- NOTE | 2019-12-06 14:33 | Electrocardiogram Report ---
Test Reason : Blood Pressure : / mmHG Vent. Rate : 091 BPM Atrial Rate : 091 BPM P-R Int : 172 ms QRS Dur : 114 ms QT Int : 378 ms P-R-T Axes : 063 091 085 degrees QTc Int : 464 ms Poor data quality, interpretation may be adversely affected Normal sinus rhythm Rightward axis Borderline ECG No previous ECGs available Confirmed by Alfred Felton ([id number]) on 12/06/2019 2:33:04 PM Referred By: REFERRED SELF Confirmed By:Alfred Felton
--- NOTE | 2019-12-07 01:07 | Billing Data ---
Date of Service December 07, 2019 Coding Level of Care Code Critical Care 1st - mins
[2019-12-10 10:09] LABS: Amphetamine Urine, Confirm 10200 ng/mL (<250); MDA negative; MDEA negative; MDMA (Ecstasy) Urine, Confirm negative; Methamphetamine, Ur Confirm >15000 ng/mL (<250)
== END 2019-12-06 10:47 | disposition home or self-care (01) ==
LOC: ED 23:53 → SUATTDRO 12-06 03:22 → 1E 12-06 03:22 → INTOOBSV 12-06 03:22 → 1E 12-06 03:56